=== PATIENT | female | born 1955 | race African-American/Black ===

== ENCOUNTER 2017-07-29 13:20 | Emergency (ER) | payer OTHER ==
[~2017-07-29] VITALS: Ht 152.4 cm; Wt 47.6 kg
--- NOTE | ~2017-07-29 | EKG ---
[address] [address] ELECTROCARDIOGRAM REPORT Name: GEORGIE SWARTZ Room #: [facility]#: [id number] Admission: 07/29/17 Attend Phys: Discharge: 07/29/17 Date of : 59 Report #: [id number] THIS REPORT FOR: //name// [facility] ED Test Date: 2017-07-29 Test Time: 13:51:19 Pat Name: GEORGIE SWARTZ Department: Room: Gender: F Practice Lead: [facility] : 1955 Requested By: Shital Ro Order Number: [id number] MD: Nikunj Oliver Measurements Intervals [place] Rate: 123 P: 90 MD: 126 QRS: -29 QRSD: 127 T: 9 QT: 370 QTc: 530 Interpretive Statements Sinus tachycardia Probable left atrial enlargement Left bundle branch block No previous ECG available for comparison Electronically Signed On 07-30-2017 8:39:22 LMFT by Nikunj Oliver [email or web address] <ELECTRONICALLY SIGNED> By: Nikunj Oliver MD 07/30/17 0839 1351 [id number] MD TIFFANY Quiñones
[~2017-07-29 13:20] MED LIST: AMITRIPTYLINE H25 M2; EXCEDRIN CAPLE1 EACH; IMITREX 50 MG T50 M1; MIRALAX255 GM PO; NAPROSYN500 MG; NORCO 5-325 TA1 EACH PO; NORFLEX100 MG PO; PROPRANOLOL 4040 M1; SIMVASTATIN20 MG; UNKNOWN HTN MED; ZOCOR
[2017-07-29 14:03] LABS: ABSOLUTE NEUTROPHILS 2.2 thou/uL (1.4-8.2); EOSINOPHILS 1.9 % (0.0-3.0); HEMATOCRIT 39.9 % (37.0-47.0); HEMOGLOBIN 13.4 gm/dL (12.0-15.0); LYMPHOCYTES 51.4 % (24.0-44.0); MCH 27.4 pg (26.0-34.0); MCHC 33.6 g/dL (28.0-37.0); MCV 81.7 fL (80.0-100.0); MONOCYTES 8.2 % (1.0-8.0); PLATELET COUNT 389 thou/uL (150-400); POLYS 37.5 % (36.0-66.0); RBC 4.89 mil/uL (4.20-5.00); RDW 13.6 % (10.5-14.5); WBC 5.8 thou/uL (4.0-11.0)
[2017-07-29 14:10] LABS: ANION GAP 15 mmol/L (7-16); BUN 16 mg/dL (7-18); CALCIUM 9.5 mg/dL (8.5-10.1); CHLORIDE 108 mmol/L (98-107); CO2 20 mmol/L (21-32); CREATININE 1.1 mg/dL (0.6-1.0); GLUCOSE 111 mg/dL (74-106); SODIUM 143 mmol/L (136-145)
[2017-07-29 14:19] LABS: MAGNESIUM 1.9 mg/dL (1.8-2.4); TROPONIN-I < 0.04 ng/mL (<0.06)
[2017-07-29 14:21] LABS: APTT 25.1 Seconds (24.5-32.8); INR 1.1; PROTIME 11.4 Seconds (9.3-11.4)
[2017-07-29 15:54] LABS: BE(vivo) -4.2 mmol/L (-2 to +3); HCO3 18.2 mmol/L (22.0-26.0); PCO2 26.3 mmHg (35.0-45.0); PO2 77.3 mmHg (80.0-100.0); pH 7.457 (7.360-7.450); sO2 96.2 % (92.0-98.0)
[2017-07-29 17:02] VITALS: BP 109/70
== END 2017-07-29 17:03 | disposition home or self-care (01) ==
LOC: ER 13:20
PROVIDERS: Emergency Medicine
DX: R06.00 Dyspnea, unspecified (principal); R07.9 Chest pain, unspecified; G43.909 Migraine, unspecified, not intractable, without status migrainosus; I10 Essential (primary) hypertension

== ENCOUNTER 2017-08-06 22:10 | Inpatient (IN) | payer OTHER ==
[~2017-08-06] VITALS: Ht 152.4 cm; Wt 56.2 kg
--- NOTE | ~2017-08-06 | EKG ---
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1955 Requested By: Weston Lazo Order Number: [id number] MD: Johnie Quiroz Measurements Intervals [place] Rate: 94 P: 71 FL: 159 QRS: -42 QRSD: 151 T: 83 QT: 420 QTc: 526 Interpretive Statements Sinus rhythm Biatrial enlargement Left bundle branch block Baseline wander in lead(s) V2,V5 Compared to ECG 07/29/2017 13:51:19 Sinus tachycardia no longer present Electronically Signed On 08-07-2017 8:24:26 ENGINEERING DIRECTOR by Johnie Quiroz [email or web address] <ELECTRONICALLY SIGNED> By: Johnie Quiroz MD, [facility] 08/07/17 0824 [id number] [id number] Johnie Quiroz MD, [facility] /EPI
--- NOTE | ~2017-08-06 | 2DMMODE ---
[facility] [address] [place] [address] 2 D/M-MODE ECHOCARDIOGRAM Name: GEORGIE SWARTZ Room #: 213-P [facility] IN ..#: [id number] Admission: 08/07/17 Attend Phys: Davie Schmidt MD Discharge: Date of : 59 Date of Service: 08/07/17 1112 Report #: [id number] THIS REPORT FOR: //name// APPROVED REPORT Study performed: 08/07/2017 09:39:20 EXAM: Comprehensive 2D, Doppler, and color-flow Echocardiogram Patient Location: Echo lab Room #: 213 Status: routine BSA: 1.45 HR: 93 bpm BP: 104/64 mmHg Other Information Study Quality: Good Indications Elevated troponin. CHF. Hx of recent NSTEMI with NISCM. LBBB 2D Dimensions RVDd: 37.33 mm LVEF(%): 7.57 (>50%) IVSd: 10.70 (7-11mm) LVOT Diam: 18.79 (18-24mm) LVDd: 47.40 mm PWd: 11.28 (7-11mm) Ascending Ao: 28.99 (22-36mm) LVDs: 45.83 (25-40mm) Aortic Root: 28.66 mm Rios's LVEF: 7.57 % Volumes Left Atrial Volume (Systole) Single Plane 4CH: 48.96 mL Single Plane 2CH: 67.34 mL LA ESV Index: 45.00 mL/m2 Aortic Valve AoV Peak Avtar.: 1.12 m/s AO Peak Gr.: 5.03 mmHg LVOT Max P.79 mmHg LVOT Max V: 0.97 m/s PK Vmax: 2.41 cm2 Mitral Valve MV Decel. Time: 91.56 ms MV E Max Avtar.: 1.26 m/s IVRT: 59.98 ms [facility] [place] [address] 2 D/M-MODE ECHOCARDIOGRAM Name: GEORGIE SWARTZ Room #: 213-P [facility] IN [facility]#: [id number] Admission: 08/07/17 Attend Phys: Davie Schmidt MD Discharge: Date of : 59 Date of Service: 08/07/17 1112 Report #: [id number] Pulmonary Valve PV Peak Avtar.: 0.81 m/s PV Peak Gr.: 2.61 mmHg Tricuspid Valve TR Peak Avtar.: 3.03 m/s RAP Estimate: 5.00 mmHg TR Peak Gr.: 36.63 mmHg PA Pressure: 42.00 mmHg Left Ventricle The left ventricle is normal size. There is normal left ventricular wall thickness. Left ventricular systolic function is severely decreased. LVEF is 20%. Inferior wall akinesis This study is not technically sufficient to allow evaluation of the LV diastolic function. Right Ventricle The right ventricle is normal size. Right ventricle is mildly hypokinetic. Atria Left atrium is moderately dilated. The right atrium size is normal. Aortic Valve Aortic valve leaflets are mildly sclerotic, trileaflet Trace aortic regurgitation. There is no aortic valvular stenosis. Mitral Valve The mitral valve is normal in structure. Moderate mitral regurgitation. No evidence of mitral valve stenosis. Tricuspid Valve The tricuspid valve is normal in structure. Mild to moderate tricuspid regurgitation. Estimated PAP is 40-45mmHg. Pulmonic Valve The pulmonary valve is normal in structure. Mild pulmonic regurgitation. Great Vessels The aortic root is normal in size. The ascending aorta is normal in size. IVC is normal in size and collapses >50% with inspiration. Pericardium [address] [address] 2 D/M-MODE ECHOCARDIOGRAM Name: GEORGIE SWARTZ Room #: 213-P [facility] IN [facility]#: [id number] Admission: 08/07/17 Attend Phys: Davie Schmidt MD Discharge: Date of : 59 Date of Service: 08/07/17 1112 Report #: [id number] There is no pericardial effusion. Left pleural effusion noted. <Conclusion> Left ventricular systolic function is severely decreased. LVEF is 20%. Inferior wall akinesis Left atrium is moderately dilated. Aortic valve leaflets are mildly sclerotic, trileaflet. Trace aortic regurgitation, no stenosis. The mitral valve is normal in structure. Moderate mitral regurgitation. Mild to moderate tricuspid regurgitation. Estimated pulmonary artery pressure is 40-45mmHg. There is no pericardial effusion. <ELECTRONICALLY SIGNED> By: Johnie Quiroz MD, [facility] 08/07/171111 11 11 Johnie Quiroz MD, FACC /INF
[2017-08-06 22:11] VITALS: BP 115/74
[2017-08-06] MEDS ORDERED: CARVEDILOL3.125 MG PO (22:18)
[2017-08-06] MEDS ORDERED: ALDACTONE25 MG PO (22:18)
[2017-08-06] MEDS ORDERED: ASPIR 8181 MG PO (22:18)
[2017-08-06] MEDS ORDERED: LIPITOR 20 MG T20 M1 PO (22:19)
[2017-08-06] MEDS ORDERED: LASIX 40 MG TAB40 M2 PO (22:19)
[2017-08-06 22:49] LABS: ABSOLUTE NEUTROPHILS 5.5 thou/uL (1.4-8.2); BASOPHILS 0.6 % (0.0-2.0); EOSINOPHILS 0.2 % (0.0-3.0); HEMATOCRIT 44.2 % (37.0-47.0); HEMOGLOBIN 14.6 gm/dL (12.0-15.0); LYMPHOCYTES 22.5 % (24.0-44.0); MCV 81.7 fL (80.0-100.0); MONOCYTES 9.9 % (1.0-8.0); PLATELET COUNT 359 thou/uL (150-400); POLYS 66.8 % (36.0-66.0); RBC 5.41 mil/uL (4.20-5.00); RDW 13.5 % (10.5-14.5); WBC 8.2 thou/uL (4.0-11.0)
[2017-08-06 23:15] LABS: CALCIUM 9.7 mg/dL (8.5-10.1); CREATININE 1.7 mg/dL (0.6-1.0); POTASSIUM 3.8 mmol/L (3.5-5.1)
[2017-08-06 23:20] LABS: ALBUMIN 4.1 g/dL (3.4-5.0); TOTAL BILIRUBIN 1.1 mg/dL (<0.1-1.0); TOTAL PROTEIN 8.6 g/dL (6.4-8.2)
[2017-08-06 23:23] LABS: TROPONIN-I 3.44 ng/mL (<0.06)
[2017-08-07] VITALS (8 sets, daily range): BP systolic 90–114; BP diastolic 47–69
[2017-08-07 00:57] LABS: HEMATOCRIT 45.6 % (37.0-47.0); HEMOGLOBIN 14.7 gm/dL (12.0-15.0); MCH 26.6 pg (26.0-34.0); MCHC 32.2 g/dL (28.0-37.0); MCV 82.6 fL (80.0-100.0); RBC 5.52 mil/uL (4.20-5.00); RDW 13.8 % (10.5-14.5); WBC 7.7 thou/uL (4.0-11.0)
[2017-08-07 01:08] LABS: INR 1.1; PROTIME 10.9 Seconds (9.3-11.4)
[2017-08-07] MEDS ORDERED: LISINOPRIL2.5 MG PO (01:53)
[2017-08-07] MEDS ORDERED: AMITRIPTYLINE H25 M2 PO (02:03)
[2017-08-07 08:02] LABS: HEMATOCRIT 41.5 % (37.0-47.0); HEMOGLOBIN 13.5 gm/dL (12.0-15.0); MCH 26.7 pg (26.0-34.0); MCHC 32.6 g/dL (28.0-37.0); MCV 81.9 fL (80.0-100.0); RBC 5.07 mil/uL (4.20-5.00); RDW 13.6 % (10.5-14.5); WBC 10.1 thou/uL (4.0-11.0)
[2017-08-07 08:26] LABS: ALBUMIN 3.5 g/dL (3.4-5.0); CALCIUM 9.3 mg/dL (8.5-10.1); CREATININE 1.5 mg/dL (0.6-1.0); POTASSIUM 3.5 mmol/L (3.5-5.1); TOTAL BILIRUBIN 1.1 mg/dL (<0.1-1.0); TOTAL PROTEIN 7.5 g/dL (6.4-8.2)
[2017-08-07 08:32] LABS: TROPONIN-I 2.99 ng/mL (<0.06)
[2017-08-08 03:55] VITALS: BP 83/50
[2017-08-08 07:20] VITALS: BP 86/46
[2017-08-08 11:15] LABS: URINE BILIRUBIN NEGATIVE (Negative); URINE BLOOD 1+ (Negative); URINE CLARITY CLEAR; URINE COLOR YELLOW; URINE GLUCOSE-RANDOM* NEGATIVE (Negative); URINE KETONES NEGATIVE (Negative); URINE LEUKOCYTES-REFLEX NEGATIVE (Negative); URINE NITRITE-REFLEX NEGATIVE (Negative); URINE PROTEIN (DIPSTICK) 1+ (Negative); URINE SPECIFIC GRAVITY >= 1.030 (1.005-1.035); URINE UROBILINOGEN 0.2 E.U./dl (0.2-1.0)
[2017-08-08 11:25] LABS: SQUAMOUS >10 Many /LPF (0-3)
[2017-08-08 11:26] LABS: URINE RBC 0-2 Rare /HPF (0-2); URINE WBC-REFLEX 6-15 Few /HPF (0-5)
[2017-08-08 11:27] LABS: CASTS None Seen /LPF (None Seen); CRYSTALS None Seen /LPF (None Seen)
[2017-08-08 12:11] LABS: CREATININE 1.7 mg/dL (0.6-1.0); POTASSIUM 3.3 mmol/L (3.5-5.1)
[2017-08-08 12:25] VITALS: BP 108/38
[2017-08-08 15:45] VITALS: BP 103/53
[2017-08-08 19:36] VITALS: BP 94/54
[2017-08-08 23:48] VITALS: BP 85/43
[2017-08-09] VITALS (7 sets, daily range): BP systolic 87–99; BP diastolic 49–63
[2017-08-09 03:23] LABS: ABSOLUTE NEUTROPHILS 11.7 thou/uL (1.4-8.2); BASOPHILS 0.5 % (0.0-2.0); HEMATOCRIT 35.4 % (37.0-47.0); HEMOGLOBIN 11.8 gm/dL (12.0-15.0); LYMPHOCYTES 13.4 % (24.0-44.0); MCH 27.2 pg (26.0-34.0); MCHC 33.2 g/dL (28.0-37.0); MCV 81.8 fL (80.0-100.0); MONOCYTES 10.5 % (1.0-8.0); POLYS 75.6 % (36.0-66.0); RBC 4.32 mil/uL (4.20-5.00); RDW 13.3 % (10.5-14.5); WBC 15.5 thou/uL (4.0-11.0)
[2017-08-09 03:24] LABS: PLATELET COUNT 233 thou/uL (150-400)
[2017-08-09 03:36] LABS: CALCIUM 8.4 mg/dL (8.5-10.1); CREATININE 1.6 mg/dL (0.6-1.0); POTASSIUM 3.1 mmol/L (3.5-5.1)
[2017-08-09 11:37] LABS: URINE BILIRUBIN NEGATIVE (Negative); URINE BLOOD 2+ (Negative); URINE CLARITY CLEAR; URINE COLOR YELLOW; URINE GLUCOSE-RANDOM* NEGATIVE (Negative); URINE KETONES TRACE (Negative); URINE LEUKOCYTES NEGATIVE (Negative); URINE NITRITE NEGATIVE (Negative); URINE PROTEIN (DIPSTICK) TRACE (Negative)
[2017-08-09 11:45] LABS: SQUAMOUS 0-3 Few /LPF (0-3)
[2017-08-09 11:46] LABS: BACTERIA 1-9 Few /HPF (None Seen); CRYSTALS None Seen /LPF (None Seen); HYALINE CASTS 4-10 Moderate /LPF (None Seen); URINE RBC 0-2 Rare /HPF (0-2); WBC CLUMPS Few (None Seen)
[2017-08-10 00:57] LABS: ABSOLUTE NEUTROPHILS 8.6 thou/uL (1.4-8.2); BASOPHILS 0.6 % (0.0-2.0); EOSINOPHILS 0.2 % (0.0-3.0); HEMATOCRIT 35.3 % (37.0-47.0); HEMOGLOBIN 11.6 gm/dL (12.0-15.0); LYMPHOCYTES 15.3 % (24.0-44.0); MCH 26.7 pg (26.0-34.0); MCHC 32.9 g/dL (28.0-37.0); MCV 81.3 fL (80.0-100.0); PLATELET COUNT 285 thou/uL (150-400); POLYS 74.9 % (36.0-66.0); RBC 4.34 mil/uL (4.20-5.00); RDW 13.4 % (10.5-14.5); WBC 11.4 thou/uL (4.0-11.0)
[2017-08-10 01:05] LABS: CALCIUM 8.6 mg/dL (8.5-10.1); CREATININE 1.3 mg/dL (0.6-1.0); POTASSIUM 3.3 mmol/L (3.5-5.1)
[2017-08-10 04:21] VITALS: BP 90/54
[2017-08-10 07:25] VITALS: BP 92/54
[2017-08-10] MEDS ORDERED: KEFLEX500 M1 PO (10:36)
[2017-08-10 11:01] VITALS: BP 89/59
[2017-08-10 11:56] VITALS: BP 89/59
[2017-08-10 13:04] VITALS: BP 89/59
[2017-08-10 15:22] VITALS: BP 89/59
[2017-08-18 16:07] LABS: STONE COLOR Tan (()); STONE COMMENT Note: (()); STONE WEIGHT <1.0 mg (())
== END 2017-08-10 16:10 | disposition home or self-care (01) | DRG 280 ==
LOC: ER 22:10 → 2N 08-07 01:19 → EROBS 08-07 01:19 → 2N 08-07 02:10
PROVIDERS: Emergency Medicine; Hospitalist; Nurse Practitioner Acute Care; Nurse Practitioner Family; Physician Assistant
DX: I21.4 Non-ST elevation (NSTEMI) myocardial infarction (principal); N17.0 Acute kidney failure with tubular necrosis; I42.9 Cardiomyopathy, unspecified; I50.20 Unspecified systolic (congestive) heart failure; N39.0 Urinary tract infection, site not specified; E78.5 Hyperlipidemia, unspecified; F32.9 Major depressive disorder, single episode, unspecified; I11.0 Hypertensive heart disease with heart failure; N20.0 Calculus of kidney; E87.6 Hypokalemia; Z79.899 Other long term (current) drug therapy
CPT/HCPCS: 10081